=== PATIENT | male | born 1985 | race Asian ===

== ENCOUNTER 2024-08-30 08:32 | Outpatient (CLI) | payer BC | END 2024-08-30 08:33 | disposition home or self-care (01) | LOC: CSHSLEEP 08:32 | PROVIDERS: ATTEND Family Medicine | DX: G47.33 Obstructive sleep apnea (adult) (pediatric) (principal); G25.89 Other specified extrapyramidal and movement disorders; R51.9 Headache, unspecified; R06.83 Snoring | CPT/HCPCS: 95811 ==